=== PATIENT | male | born 1960 | race Caucasian/White ===

== ENCOUNTER 2020-08-04 09:59 | Emergency (ER) | payer BC ==
--- NOTE | 2020-08-04 10:14 | EDM.PDOC ---
ED HPI GENERAL MEDICAL PROBLEM - General Chief Complaint: Chest Pain Stated Complaint: chest tightness Time Seen by Provider: 08/04/20 10:11 Source of Information: Reports: Patient, EMS, Old Records, Provider History Limitations: Reports: No Limitations - History of Present Illness INITIAL COMMENTS - FREE TEXT/NARRATIVE: 60 yo male with chest tightness today. Had this intermittently over the past several days while snow blowing. Has known hx of CAD w/CABG. Was given NTG in clinic with a big drop in BP this am. Arrives from [facility] via EMS. Has known PVD, and AODM as well. Smokes 1 ppd. Pain started with exertion at work today, but never went away completely. Doesn't have NTG at home. Onset: Today Onset Date: 08/04/20 Duration: Minutes: Location: Reports: Chest Quality: Reports: Pressure Severity: Mild (now, was moderate at worst) Improves with: Reports: Rest ( and NTG improved, not resolved) Worsens with: Reports: Movement (exertion) Context: Reports: Other (See HPI) Associated Symptoms: Reports: Chest Pain. 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 CHEST Pain Score (Numeric/FACES): 2 - Related Data Allergies Allergy/AdvReac Type Severity Reaction Status Date / Time No Known Allergies Allergy Verified 08/04/20 11:42 Home Meds: Home Meds Aspirin [Adult Aspirin] 162 mg PO DAILY 07/12/18 [History] Simvastatin 20 mg PO BEDTIME 07/12/18 [History] carvediloL [Carvedilol] 12.5 mg PO BIDMEALS 07/12/18 [History] lisinopriL [Prinivil] 5 mg PO BEDTIME 07/12/18 [History] metFORMIN [Glucophage] 1,000 mg PO BIDMEALS 07/12/18 [History] Past Medical History HEENT History: Reports: Impaired Vision Cardiovascular History: Reports: CAD, High Cholesterol, Hypertension, [place], PVD, Other (See Below) Other Cardiovascular History: VARICOSE VEINS Respiratory History: Reports: COPD Other Respiratory History: EMPHAZEMA Gastrointestinal History: Reports: None Genitourinary History: Reports: None Musculoskeletal History: Reports: Back Pain, Chronic Neurological History: Reports: None Psychiatric History: Reports: None Endocrine/Metabolic History: Reports: Diabetes, Type II Hematologic History: Reports: None Immunologic History: Reports: None Oncologic (Cancer) History: Reports: None Dermatologic History: Reports: None - Past Surgical History Head Surgeries/Procedures: Reports: None HEENT Surgical History: Reports: Oral Surgery Cardiovascular Surgical History: Reports: Coronary Artery Bypass, Varicose, Vascular Surgery Other Cardiovascular Surgeries/Procedures: LEFT VENOUS ABLATION, CARDIAC CATH Respiratory Surgical History: Reports: None GI Surgical History: Reports: Colonoscopy Male Surgical History: Reports: None Endocrine Surgical History: Reports: None Neurological Surgical History: Reports: Other (See Below) Other Neurological Surgeries/Procedures: STATES BACK SURGERY Other Musculoskeletal Surgeries/Procedures:: BACK SURGERY PER HX Oncologic Surgical History: Reports: None Dermatological Surgical History: Reports: None Social & Family History - Caffeine Use Caffeine Use: Reports: Soda ED ROS GENERAL - Review of Systems Review Of Systems: See Below Constitutional: Reports: No Symptoms HEENT: Reports: No Symptoms Respiratory: Reports: No Symptoms Cardiovascular: Reports: Chest Pain Endocrine: Reports: No Symptoms GI/Abdominal: Reports: No Symptoms : Reports: No Symptoms Musculoskeletal: Reports: No Symptoms Skin: Reports: No Symptoms Neurological: Reports: No Symptoms Psychiatric: Reports: No Symptoms ED EXAM, GENERAL - Physical Exam Exam: See Below Exam Limited By: No Limitations General Appearance: Alert, WD/WN, No Apparent Distress Eye Exam: Bilateral Eye: Normal Inspection Ears: Normal External Exam, Normal Canal, Hearing Grossly Normal Ear Exam: Bilateral Ear: Auricle Normal, Canal Normal Nose: Normal Inspection, No Blood Throat/Mouth: Normal Inspection, Normal Lips, Normal Oropharynx, Normal Voice, No Airway Compromise Head: Atraumatic, Normocephalic Neck: Normal Inspection Respiratory/Chest: No Respiratory Distress, Lungs Clear, Normal Breath Sounds, No Accessory Muscle Use Cardiovascular: Regular Rate, Rhythm, No Edema GI/Abdominal: Normal Bowel Sounds, Soft, Non-Tender, No Distention Back Exam: Normal Inspection. No: CVA Tenderness (R), CVA Tenderness (L) Extremities: Normal Inspection, Normal Range of Motion, Non-Tender, No Pedal Edema Neurological: Alert, Oriented, CN II-XII Intact, Normal Cognition, No Motor/Sensory Deficits Psychiatric: Normal Affect, Normal Mood Skin Exam: Warm, Dry, Intact, Normal Color, No Rash #1 Interpretation EKG Date: 08/04/20 Time: 09:40 Rhythm: NSR Rate (Beats/Min): 92 [place]: RAD-Right [place] Deviation P-Wave: Present QRS: RBBB ST-T: Normal QT: Normal Comparison: No Change Course - Vital Signs Text/Narrative:: accepted in transfer to [facility] by Dr. Rizzo @ 1230h Last Recorded V/S: Last Vital Signs Temp 35.9 C L 08/04/20 10:00 Pulse 88 08/04/20 10:00 Resp 20 08/04/20 10:00 BP Pulse Ox 98 08/04/20 10:00 - Orders/Labs/Meds Orders: Active Orders 24 hr Category Date Time Status Cardiac Monitoring [RC] .As Directed Care 08/04/20 10:07 Active Heparin Sodium/0.45% NaCl [Heparin 25,000 Units in 1/2 Med 08/04/20 10:30 Active NS 500 ML] 25,000 units in 500 ml IV TITRATE Sodium Chloride 0.9% [Normal Saline] 1,000 ml Med 08/04/20 11:00 Active IV ASDIRECTED Medication Orders Heparin Sodium/Sodium Chloride (Heparin 25,000 Units In 1/2 Ns 500 Ml) 25,000 units in 500 mls @ 20 mls/hr IV TITRATE JULIAN Last Admin: 08/04/20 10:52 Dose: 20 mls/hr Documented by: AMANUEL Cosigned by: KURT Sodium Chloride (Normal Saline) 1,000 mls @ 125 mls/hr IV ASDIRECTED JULIAN Labs: Laboratory Tests 08/04/20 08/04/20 08/04/20 Range/Units 10:20 10:20 10:20 WBC 14.2 H (3.2-10.1) x10-3/uL RBC 4.76 (3.90-5.90) x10(6)uL Hgb 14.7 (12.9-17.7) g/dL Hct 45.1 (38.3-50.1) % MCV 94.7 (80.8-98.7) fL MCH 30.9 (27.0-33.3) pg MCHC 32.6 (28.7-35.3) g/dL RDW 13.4 (12.4-15.0) % Plt Count 229 (117-477) x10(3)uL PT (9.0-11.1) sec INR (1.00-1.24) D-Dimer, Quantitative (0.0-0.59) mg/LFEU Sodium 136 (135-145) mmol/L Potassium 5.5 H (3.5-5.3) mmol/L Chloride 102 (100-110) mmol/L Carbon Dioxide 24 (21-32) mmol/L BUN 20 H (7-18) mg/dL Creatinine 1.9 H (0.70-1.30) mg/dL Est Cr Clr Drug Dosing 47.47 mL/min Estimated GFR (MDRD) 36 L (>60) BUN/Creatinine Ratio 10.5 (9-20) Glucose 233 H (80-116) mg/dL Calcium 8.2 L (8.6-10.2) mg/dL Troponin I 7.5 (4.0-60.3) pg/mL 08/04/20 08/04/20 08/04/20 Range/Units 10:20 10:20 11:43 WBC (3.2-10.1) x10-3/uL RBC (3.90-5.90) x10(6)uL Hgb (12.9-17.7) g/dL Hct (38.3-50.1) % MCV (80.8-98.7) fL MCH (27.0-33.3) pg MCHC (28.7-35.3) g/dL RDW (12.4-15.0) % Plt Count (117-477) x10(3)uL PT 10.2 (9.0-11.1) sec INR 0.94 L (1.00-1.24) D-Dimer, Quantitative 0.40 (0.0-0.59) mg/LFEU Sodium (135-145) mmol/L Potassium (3.5-5.3) mmol/L Chloride (100-110) mmol/L Carbon Dioxide (21-32) mmol/L BUN (7-18) mg/dL Creatinine (0.70-1.30) mg/dL Est Cr Clr Drug Dosing mL/min Estimated GFR (MDRD) (>60) BUN/Creatinine Ratio (9-20) Glucose (80-116) mg/dL Calcium (8.6-10.2) mg/dL Troponin I 8.3 (4.0-60.3) pg/mL Meds: Medications Generic Name Dose Route Start Last Admin Trade Name Frejames PRN Reason Stop Dose Admin Heparin Sodium/Sodium Chloride 25,000 units in 500 mls @ 20 mls/hr 08/04/20 10:30 08/04/20 10:52 Heparin 25,000 Units In 1/2 Ns 500 Ml IV 20 mls/hr TITRATE JULIAN Administration Sodium Chloride 1,000 mls @ 125 mls/hr 08/04/20 11:00 Normal Saline IV ASDIRECTED JULIAN Discontinued Medications Generic Name Dose Route Start Last Admin Trade Name Wilderq PRN Reason Stop Dose Admin Heparin Sodium (Porcine) 5,000 units 08/04/20 10:21 08/04/20 10:45 Heparin Sodium IVPUSH 08/04/20 10:22 5,000 units ONETIME ONE Administration Ticagrelor 180 mg 08/04/20 10:26 08/04/20 10:45 Brilinta PO 08/04/20 10:27 180 mg ONETIME ONE Administration Departure - Departure Time of Disposition: 12:50 Disposition: DC/Tfer to Acute Hospital 02 Reason for Transfer *Q: Other Condition: Fair Clinical Impression: Unstable angina, Tobacco abuse Forms: ED Department Discharge Sepsis Event Note (ED) - Focused Exam Vital Signs: Vital Signs Temp Pulse Resp Pulse Ox 08/04/20 10:00 35.9 C L 88 20 98 - My Orders Last 24 Hours: My Active Orders 08/04/20 10:07 Cardiac Monitoring [RC] .As Directed 08/04/20 10:30 Heparin Sodium/0.45% NaCl [Heparin 25,000 Units in 1/2 NS 500 ML] 25,000 units in 500 ml IV TITRATE 08/04/20 11:00 Sodium Chloride 0.9% [Normal Saline] 1,000 ml IV ASDIRECTED - Assessment/Plan Last 24 Hours: My Active Orders 08/04/20 10:07 Cardiac Monitoring [RC] .As Directed 08/04/20 10:30 Heparin Sodium/0.45% NaCl [Heparin 25,000 Units in 1/2 NS 500 ML] 25,000 units in 500 ml IV TITRATE 08/04/20 11:00 Sodium Chloride 0.9% [Normal Saline] 1,000 ml IV ASDIRECTED
[2020-08-04] MEDS ORDERED: Heparin Sodium 5,000 Units/ML Vial IVPUSH ONE (10:21)
[2020-08-04] MEDS ORDERED: Ticagrelor 90 MG Tab PO ONE (10:26)
[2020-08-04] MEDS ORDERED: Heparin Sodium/0.45% NaCl 25,000 UNITS/500 ML BAG IV SCH (10:30)
[2020-08-04] MEDS ORDERED: Sodium Chloride 0.9% 1,000 ML IV SCH (11:00)
== END 2020-08-04 13:15 ==
LOC: FB.ED 09:59
DX: I25.110 Atherosclerotic heart disease of native coronary artery with unstable angina pectoris (principal); F17.210 Nicotine dependence, cigarettes, uncomplicated; E78.00 Pure hypercholesterolemia, unspecified; I10 Essential (primary) hypertension; I25.2 Old myocardial infarction; J43.9 Emphysema, unspecified; E11.9 Type 2 diabetes mellitus without complications; Z79.82 Long term (current) use of aspirin; Z79.899 Other long term (current) drug therapy
CPT/HCPCS: 36415; 80048; 84484; 85027; 85379; 85610; 96365; 96366; 99285; 99285-25; A9270-GY; J1644

== ENCOUNTER 2022-12-10 06:20 | Day surgery (SDC) | payer BC ==
[~2022-12-10 06:20] MED LIST: Lactated Ringers 1,000 ML IV SCH; Sodium Chloride 0.9% 10 ML Syringe FLUSH PRN
[2022-12-10] MEDS ORDERED: Glycopyrrolate 0.2 MG/ML 5 ML MDV IV ONE (06:21)
[2022-12-10] MEDS ORDERED: Lidocaine 2% 5 ML SDV IV ONE (06:21)
[2022-12-10] MEDS ORDERED: Propofol 200 MG/20 ML SDV IV ONE (06:21)
[2022-12-10] MEDS ORDERED: Simethicone Drops 40 MG/0.6 ML 30 ML Bottle ONE (07:30)
== END 2022-12-10 09:10 | disposition home or self-care (01) ==
LOC: FB.SDS 06:20
PROVIDERS: ATTEND Surgery
DX: Z12.11 Encounter for screening for malignant neoplasm of colon (principal); K58.9 Irritable bowel syndrome, unspecified; K63.5 Polyp of colon; I25.10 Atherosclerotic heart disease of native coronary artery without angina pectoris; E11.9 Type 2 diabetes mellitus without complications; I10 Essential (primary) hypertension; J43.9 Emphysema, unspecified; I25.2 Old myocardial infarction; I73.9 Peripheral vascular disease, unspecified; F17.210 Nicotine dependence, cigarettes, uncomplicated; Z79.84 Long term (current) use of oral hypoglycemic drugs; Z79.4 Long term (current) use of insulin; Z79.899 Other long term (current) drug therapy
CPT/HCPCS: 00812; 45385; 82947; 88304; A9270; J2704; J3490; J7120